=== PATIENT | female | born 1985 | race Caucasian/White ===

== ENCOUNTER → 2020-06-29 | Outpatient (REF) | LOC: COL.ER 12:39 → COL.LAB 12:39 | DX: Z20.822 Contact with and (suspected) exposure to COVID-19 (principal) ==

== ENCOUNTER 2020-08-23 13:54 | Outpatient (RCR) | payer OTHER | END 2020-11-21 | disposition home or self-care (01) | LOC: WSOH | DX: Z77.21 Contact with and (suspected) exposure to potentially hazardous body fluids (principal); W46.1XXA Contact with contaminated hypodermic needle, initial encounter; Y99.0 Civilian activity done for income or pay ==